=== PATIENT | female | born 1975 | race American Indian/Alaskan Native ===

== ENCOUNTER 2018-03-16 18:07 | Emergency (ER) | payer SELFPAY ==
[2018-03-16 18:22] VITALS: BP 134/73
--- NOTE | 2018-03-16 18:24 | Emergency Department Report ---
ED General Adult HPI - General Chief complaint: Fall Stated complaint: FALL Time Seen by Provider: 03/16/18 18:18 Source: patient, RN notes reviewed Mode of arrival: Stretcher Limitations: Physical Limitation - History of Present Illness Initial comments: This is a 42-year-old female. The patient is not known to this provider previously. The patient reports that she is not . Past medical history includes stroke, residual left-sided weakness, pulmonary embolus, upper extremity DVT, history of right upper extremity finger amputations, currently on eliquis Igor presents to ER after mechanical fall. Patient reports that she was in bed, stretched over, tried to get something, and fell out of bed onto her left side. She believes that she hit her head and pulled her left foot. She denies severe headache, midline neck pain, and new or different extremity weakness or numbness. -: Sudden Location: head, left, lower extremity Radiation: non-radiation Severity scale (0 -10): 0 Quality: aching Consistency: intermittent Improves with: rest Worsens with: movement Associated Symptoms: denies: confusion, chest pain, cough, diaphoresis, fever/chills, loss of appetite, malaise, nausea/vomiting, rash, seizure, shortness of breath, syncope - Related Data Previous Rx's Medication Instructions Recorded Last Taken Type Atenolol [Tenormin] 50 mg PO DAILY #30 tablet 07/29/13 Unknown Rx Lovastatin [Mevacor] 40 mg PO QPM #30 tablet 07/29/13 Unknown Rx amLODIPine [Norvasc] 10 mg PO DAILY #30 tablet 07/29/13 Unknown Rx hydroCHLOROthiazide 25 mg PO DAILY #30 tablet 07/29/13 Unknown Rx [Hydrochlorothiazide] Allergies Allergy/AdvReac Type Severity Reaction Status Date / Time latex Allergy Hives Verified 03/15/14 08:21 Penicillins Allergy Unknown Verified 03/15/14 08:21 ED Review of Systems ROS: Stated complaint: FALL Other details as noted in HPI Constitutional: denies: fever Eyes: denies: eye discharge ENT: denies: epistaxis Respiratory: denies: cough Cardiovascular: denies: chest pain Gastrointestinal: denies: vomiting Musculoskeletal: arthralgia, myalgia Neurological: other (chronic weakness) ED Past Medical Hx - Past Medical History Previous Medical History?: Yes Hx Hypertension: Yes Hx CVA: Yes (left sided weakness) Hx Heart Attack/AMI: No Hx Congestive Heart Failure: Yes Hx Diabetes: No Hx Deep Vein Thrombosis: No Hx Seizures: Yes (with elevated bp) Hx Asthma: No Hx COPD: No - Surgical History Hx Coronary Stent: No Hx Pacemaker: No Hx Internal Defibrillator: No Additional Surgical History: 3 c-sections, tubal - Social History Smoking Status: Never Smoker Substance Use Type: None - Medications Home Medications: Home Medications Medication Instructions Recorded Confirmed Last Taken Type Atenolol [Tenormin] 50 mg PO DAILY #30 tablet 07/29/13 Unknown Rx Lovastatin [Mevacor] 40 mg PO QPM #30 tablet 07/29/13 Unknown Rx amLODIPine [Norvasc] 10 mg PO DAILY #30 tablet 07/29/13 Unknown Rx hydroCHLOROthiazide 25 mg PO DAILY #30 tablet 07/29/13 Unknown Rx [Hydrochlorothiazide] ED Physical Exam - General Limitations: Physical Limitation General appearance: alert, in no apparent distress - Head Head exam: Present: atraumatic, normocephalic - Eye Eye exam: Present: normal appearance, EOMI. Absent: nystagmus - ENT ENT exam: Present: normal exam, normal orophraynx, mucous membranes moist, normal external ear exam - Neck Neck exam: Present: normal inspection, full ROM, other (no midline cervical spine tenderness). Absent: tenderness, meningismus - Respiratory Respiratory exam: Present: normal lung sounds bilaterally. Absent: respiratory distress - Cardiovascular Cardiovascular Exam: Present: regular rate, normal rhythm, normal heart sounds. Absent: bradycardia, tachycardia, irregular rhythm, systolic murmur, diastolic murmur, rubs, gallop - GI/Abdominal GI/Abdominal exam: Present: soft. Absent: distended, tenderness, guarding, rebound, rigid, pulsatile mass - Extremities Exam Extremities exam: Present: other (2+ pulses in the bilateral upper, lower extremities.2+ pulses noted in the bilateral upper, lower extremities. Compartments soft. No long bony tenderness. The pelvis is stable.). Absent: normal inspection (right upper extremity shows evidence of old finger amputations. There is no redness, pus or streaking) - Back Exam Back exam: Present: normal inspection. Absent: tenderness, CVA tenderness (R), paraspinal tenderness, vertebral tenderness - Neurological Exam Neurological exam: Present: alert, motor sensory deficit (chronic weakness left arm, left leg.), other (patient has 4 out of 5 strength in 4 extremities. Sensation intact to light touch in 4 extremities. Reports that her strength is not subjectively worse or better than baseline. Reports that strength is at baseline.) - Psychiatric Psychiatric exam: Present: normal affect, normal mood - Skin Skin exam: Present: warm, dry, intact, normal color. Absent: rash ED Course Vital Signs 03/16/18 18:17 Temperature 98.1 F Pulse Rate 85 Respiratory 18 Rate Blood Pressure 134/73 Blood Pressure 134/73 [Left] O2 Sat by Pulse 99 Oximetry - Reevaluation(s) Reevaluation #1: 03/16/18 19:11 Differential diagnosis, including are not limited to: Slip and fall, musculoskeletal pain, intracranial injury Assessment and plan: 42-year-old female, on systemic anticoagulation, eliquis, with blunt head trauma, clinically sober, no midline cervical spine tenderness, reports that strength in her arms and legs is at baseline. We will obtain noncontrast CT scan of the brain. X-ray of the foot appears to be unremarkable. Reevaluation #2: 03/16/18 19:52 Patient conversing with friends, family in no acute distress. CT scan demonstrates no significant acute intracranial abnormality. Patient endorses readiness for discharge. ED Medical Decision Making - Lab Data Vital Signs 03/16/18 18:17 Temperature 98.1 F Pulse Rate 85 Respiratory 18 Rate Blood Pressure 134/73 Blood Pressure 134/73 [Left] O2 Sat by Pulse 99 Oximetry - Radiology Data Radiology results: pending, report reviewed, image reviewed interpreted by me: X-ray of the left foot is negative for acute disease. FINAL REPORT EXAM: CT HEAD/BRAIN WO CON HISTORY: PT FELL, UNSURE WHERE SHE HIT HER HEAD. HX STROKE/ANEURYSM W CRANIOTOMY IN 2017. DOESN'T THINK SHE HIT ON THAT SIDE. COMPLETELY OUT ON LEFT SIDE FROM PRIOR STROKE. TECHNIQUE: Contiguous axial images of the head were obtained without the use of intravenous contrast. PRIORS: None. FINDINGS: There is been previous large right craniectomy. There is a large area encephalomalacia involving the right frontal, parietal and tempora l lobes. There is no evidence of acute infarct or intracranial hemorrhage. There is no mass lesion or mass effect. There are no abnormal extra-axial fluid collections. There is ex vacuo dilatation of the right lateral ventricle. There is deep white matter lucency consistent with chronic microvascular ischemic disease. The visualized orbits are unremarkable. The visualized paranasal sinuses are clear. IMPRESSION: 1. Extensive postsurgical change of the right cranium with a large area of encephalomalacia involving the right frontal, parietal and temporal lobes. 2. No evidence of acute infarct or intracranial hemorrhage. 3. White matter lucency consistent with chronic microvascular ischemic disease. Transcribed By: VIDYA Dictated By: JORGE SON MD Electronically Authenticated By: JORGE SON MD Signed Date/Time: 03/16/181947 Critical care attestation.: If time is entered above; I have spent that time in minutes in the direct care of this critically ill patient, excluding procedure time. ED Disposition Clinical Impression: Fall Disposition: DC-01 TO HOME OR SELFCARE Is pt being admited?: No Does the pt Need Aspirin: No Condition: Stable Instructions: Fall Prevention (ED) Additional Instructions: Continue outpatient medications. Take acetaminophen, [id number], 650 mg, every 4-6 hours, as needed for pain. Return to the ER right away with new pain, worsened pain, migration of pain, projectile vomiting, change in mental status, confusion, new, worsening or different symptoms. Referrals: [facility] [Provider Group] - as needed
[2018-03-16] MEDS ORDERED: TYLENOL PO ONE (19:30)
--- NOTE | 2018-03-16 19:48 | Cat Scan Report ---
FINAL REPORT EXAM: CT HEAD/BRAIN WO CON HISTORY: PT FELL, UNSURE WHERE SHE HIT HER HEAD. HX STROKE/ANEURYSM W CRANIOTOMY IN 2017. DOESN'T TH INK SHE HIT ON THAT SIDE. COMPLETELY OUT ON LEFT SIDE FROM PRIOR STROKE. TECHNIQUE: Contiguous axial images of the head were obtained without the use of intravenous contrast . PRIORS: None. FINDINGS: There is been previous large right craniectomy. There is a large area encephalomalacia involving the right frontal, parietal and temporal lobes. There is no evidence of acute infarct or intracranial hem orrhage. There is no mass lesion or mass effect. There are no abnormal extra-axial fluid collections . There is ex vacuo dilatation of the right lateral ventricle. There is deep white matter lucency con sistent with chronic microvascular ischemic disease. The visualized orbits are unremarkable. The visu alized paranasal sinuses are clear. IMPRESSION: 1. Extensive postsurgical change of the right cranium with a large area of encephalomalacia involving the right frontal, parietal and temporal lobes. 2. No evidence of acute infarct or intracranial hemorrhage. 3. White matter lucency consistent with chronic microvascular ischemic disease.
--- NOTE | 2018-03-16 19:53 | XRay Report ---
FINAL REPORT EXAM: XR FOOT 3+V LT HISTORY: left foot pain fall TECHNIQUE: Three views of the left foot PRIORS: None. FINDINGS: The bones are normally aligned and mineralized. The joint spaces are well-preserved. There is no evid ence of acute fracture. The soft tissues are unremarkable. IMPRESSION: No evidence of acute fracture or subluxation.
== END 2018-03-16 22:15 | disposition home or self-care (01) ==
LOC: ED 18:07
DX: S09.90XA Unspecified injury of head, initial encounter (principal); M79.672 Pain in left foot; I11.0 Hypertensive heart disease with heart failure; I50.9 Heart failure, unspecified; Z86.73 Personal history of transient ischemic attack (TIA), and cerebral infarction without residual deficits; Z86.711 Personal history of pulmonary embolism; Z86.718 Personal history of other venous thrombosis and embolism; Z91.040 Latex allergy status; Z88.0 Allergy status to penicillin; W06.XXXA Fall from bed, initial encounter; Y93.89 Activity, other specified; Y92.89 Other specified places as the place of occurrence of the external cause; Y99.8 Other external cause status
CPT/HCPCS: 70450